=== PATIENT | male | born 1995 | race African-American/Black ===

== ENCOUNTER 2023-12-01 02:23 | Emergency (ER) | payer OTHER ==
[~2023-12-01] VITALS: Ht 182.9 cm; Wt 95.5 kg
[2023-12-01] MEDS ORDERED: Glucagon 1 MG VIAL IM ONE (03:15)
[2023-12-01 05:03] VITALS: BP 155/90; PULSE 112; TEMP 98.9
== END 2023-12-01 05:03 | disposition home or self-care (01) ==
LOC: COL.ER 02:23
DX: R09.A2 Foreign body sensation, throat (principal)
CPT/HCPCS: J1610